=== PATIENT | male | born 1960 | race Caucasian/White ===

== ENCOUNTER 2019-07-12 11:41 | Day surgery (SDC) | payer BC ==
[~2019-07-12 11:41] MED LIST: Buffered Lidocaine 1% SYRIN* 1 ML/SYRINGE INTRADERM ONE; Famotidine IV* 10 MG/ML 2 ML (20 mg) IV ONE; Lactated Ringers 1000 ML Bag* 1,000 ML IV SCH
[2019-07-12] MEDS ORDERED: ceFAZolin 2 GM in NS PREMIX(*) 2 GM/100 ML BAG IVPB ONE (12:15)
[2019-07-12] MEDS ORDERED: Famotidine IV* 10 MG/ML 2 ML (20 mg) ONE (12:15)
[2019-07-12] MEDS ORDERED: Buffered Lidocaine 1% SYRIN* 1 ML/SYRINGE INTRADERM ONE (12:15)
[2019-07-12] MEDS ORDERED: fentaNYL* 50 MCG/ML 2 ML VIAL (100 MCG VIAL) ONE (12:33)
[2019-07-12] MEDS ORDERED: Midazolam* 1 MG/ML 5 ML VIAL (5 MG) ONE (12:33)
[2019-07-12 13:12] LABS: INR 0.97 (0.82-1.09)
[2019-07-12] MEDS ORDERED: Bupivacaine 0.5% W/EPI SDV* 30 ML VIAL ONE (13:38)
[2019-07-12] MEDS ORDERED: Lidocaine 1% INJ* 10 MG/ML 30 ML SDV ONE (13:39)
[2019-07-12] MEDS ORDERED: oxyCODONE TAB* 5 MG TAB PO PRN (13:59)
[2019-07-12] MEDS ORDERED: DiMENhydriNATE IV* 50 MG/ML VIAL IV PUSH PRN (13:59)
[2019-07-12] MEDS ORDERED: Acetaminophen TAB* 325 MG PO PRN (13:59)
[2019-07-12] MEDS ORDERED: Naloxone* 0.4 MG/ML 1 ML VIAL IV PRN (13:59)
[2019-07-12] MEDS ORDERED: Propofol* 10 MG/ML 20 ML BTL ONE ×2 (14:31→15:31)
[2019-07-12] MEDS ORDERED: Glycopyrrolate IV* 0.2 MG/ML 1 ML VIAL ONE (14:38)
[2019-07-12] MEDS ORDERED: Ketorolac INJ* 30 MG/ML 1 ML VIAL ONE (14:38)
[2019-07-12] MEDS ORDERED: Ondansetron INJ* 2 MG/ML VIAL ONE (14:38)
--- NOTE | 2019-07-12 15:42 | OP ---
Operative Report - Blank - Operative Report Date of Operation: 07/12/19 Note: OPERATIVE NOTE Pre-Operative Diagnosis:Umbilical hernia Post-Operative Diagnosis:Same Procedure:Open repair with mesh of umbilical hernia Surgeon: Anupam Calderon MD Mission Assessment Specialist:SILVINO Solitario Anesthesia: Local with MAC General with IVF:1 liter crystalloid EBL:min Specimen:none Drain: none Wound Class:One Findings: 2.5 cm hernia, 8.4 cm mesh diameter placed in extraperitoneal position TO PACU
[2019-07-12] MEDS ORDERED: Acetaminophen TAB* 325 MG ONE (16:29)
[2019-07-12] MEDS ORDERED: oxyCODONE TAB* 5 MG TAB ONE (16:29)
[2019-07-12 17:12] VITALS: BP 118/82
--- NOTE | 2019-07-12 22:11 | OP ---
CC: [facility]; Dr. Homer Rios, [facility] * DATE OF OPERATION: 07/12/19 - SDS DATE OF : 56 SURGEON: Joe Calderon MD VEGETABLE PACKER: SILVINO Berry ANESTHESIA: General with local. PRE-OP DIAGNOSIS: Umbilical hernia. POST-OP DIAGNOSIS: Umbilical hernia. OPERATIVE PROCEDURE: Open repair with 8.4 cm diameter circular Bard dual- coated mesh. ESTIMATED BLOOD LOSS: Minimal. SPECIMEN: None. IV FLUIDS: 1 L crystalloid. WOUND CLASSIFICATION: I. DRAINS: None. FINDINGS: The patient had a rather large fat-containing umbilical hernia. I did enter the peritoneal cavity but the peritoneum was closed and the mesh was placed in the preperitoneal position deep to the muscle. DESCRIPTION OF PROCEDURE: Written informed consent was obtained. The abdomen was marked with indelible ink and preoperative antibiotics were administered. The patient was taken to the operating room and placed in the supine position. Sequential compression devices and a warming blanket were applied. Anesthesia was administered. The abdomen was prepped and draped in the usual sterile fashion. Time-out verification was completed. A 0.25% Marcaine mixed with 1% lidocaine was infiltrated extensively in the periumbilical area and a semicircular incision was made inferior to the umbilicus and carried down through the subcutaneous tissue to the anterior fascia just below the umbilicus. There was a large amount of protuberant hernia which appeared to be fat and was able to encircle this by dissecting laterally and superiorly with a 0.25% Raul drain. The umbilical skin which was quite thin was then excised sharply off the fat. I did enter the peritoneal hernia sac and there was a large amount of omental fat. Once I removed the overlying skin, we were able to identify the fascial defect which was about 2.5 cm in diameter. I tried to reduce the fat several different times and was not able to insert this pass through the narrow neck of the hernia and thus I amputated small amount of omentum, ligating it with a 2-0 Vicryl suture. The specimen was not sent for pathology. Once the minimal fat had been reduced, the peritoneum was free of any adhesions. I closed the peritoneal rent with a running 2-0 Vicryl lock suture. I then developed the preperitoneal space just deep to the muscle using a combination of blunt and sharp dissection for about 3 cm in each direction circumferentially. Hemostasis was assured. An 8.4 cm Bard circular mesh was then placed into the preperitoneal space. It was sutured in 4 positions with horizontal mattress 0-Vicryl sutures to the underside of the fascia and sat nicely without evidence of wrinkling. The [place] fascia was then closed in a transverse orientation with interrupted # 1 Ethibond suture. Additional marking was infiltrated. The subcutaneous tissue was closed in layers with 3-0 Vicryl suture. The skin was approximated with subcuticular 4-0 Vicryl suture. Steri-Strips were applied. The patient tolerated the procedure well, was taken to recovery room in stable condition. [id number]/CPS #: [id number] DAO
== END 2019-07-12 17:12 | disposition home or self-care (01) ==
LOC: OR 11:41
PROVIDERS: ATTEND Surgery
DX: K42.9 Umbilical hernia without obstruction or gangrene (principal); I48.0 Paroxysmal atrial fibrillation; Z95.2 Presence of prosthetic heart valve; M19.90 Unspecified osteoarthritis, unspecified site; Z79.01 Long term (current) use of anticoagulants; E66.9 Obesity, unspecified
CPT/HCPCS: 36415; 85610; A9270-GY; C1781; J0690; J1885; J2250; J2405; J2704; J3010